=== PATIENT | female | born 1955 | race Caucasian/White ===

== ENCOUNTER 2020-10-04 21:15 | Emergency (ER) | payer MEDICARE ==
[2020-10-04] MEDS ORDERED: NIGHT-TIME COL300 ML (22:24)
[2020-10-04] MEDS ORDERED: EYE GTTS (22:35)
[2020-10-04] MEDS ORDERED: PROAIR HFA0.09 MG/AC IH (23:30)
[2020-10-04] MEDS ORDERED: PREDNISONE20 MG PO (23:30)
[2020-10-04] MEDS ORDERED: MONODOX100 M1 PO (23:32)
[2020-10-04 23:54] VITALS: BP 120/80
== END 2020-10-04 23:55 | disposition home or self-care (01) ==
LOC: ED 21:15
DX: J40 Bronchitis, not specified as acute or chronic (principal); Z20.822 Contact with and (suspected) exposure to COVID-19
CPT/HCPCS: J7512

== ENCOUNTER 2021-09-01 13:37 | Emergency (ER) | payer MEDICARE ==
[~2021-09-01 13:37] MED LIST: EYE GTTS; MONODOX100 M1 PO; NIGHT-TIME COL300 ML; PREDNISONE20 MG PO; PROAIR HFA0.09 MG/AC IH
[2021-09-01 13:48] VITALS: BP 151/121
[2021-09-01] MEDS ORDERED: PREMIERPRO RX5 MG/GM OP (14:32)
== END 2021-09-01 14:39 | disposition home or self-care (01) ==
LOC: ED 13:37
DX: H11.31 Conjunctival hemorrhage, right eye (principal); Z28.310 Unvaccinated for COVID-19; W26.8XXA Contact with other sharp object(s), not elsewhere classified, initial encounter; Y92.59 Other trade areas as the place of occurrence of the external cause; Y99.0 Civilian activity done for income or pay

== ENCOUNTER 2023-03-27 15:02 | Emergency (ER) | payer MEDICARE ==
[~2023-03-27] VITALS: Ht 15.2 cm; Wt 85.8 kg
[~2023-03-27 15:02] MED LIST changes: +DOXYCYCLINE MO100 M2 PO; +PREDNISONE20 M1 PO; +PREMIERPRO RX5 MG/GM OP; +PROVENTIL0.09 MG/A1 IH
[2023-03-27] MEDS ORDERED: LATANOPROST 2.2.5 ML OU (15:29)
[2023-03-27 15:51] LABS: BASO # 0.02 K/mm3 (0.02-0.10); EOS # 0.44 K/mm3 (0.04-0.40); EOS % 5.7 % (1.0-5.0); HEMATOCRIT 50.6 % (37.0-47.0); LYMPH# 0.91 K/mm3 (1.50-4.00); MEAN CELL VOLUME 99 fl (78-100); MEAN CORPUSCULAR HEMOGLOBIN 31 pg (27-31); MEAN CORPUSCULAR HGB CONC 32 g/dL (33-37); MEAN PLATELET VOLUME 10.7 fl (7.4-10.4); MONO # 0.74 K/mm3 (0.20-0.80); PLATELET COUNT 277 K/mm3 (130-400); WHITE BLOOD COUNT 7.7 K/mm3 (4.8-10.8)
[2023-03-27 15:56] LABS: ALBUMIN 4.6 g/dL (3.4-4.8); SODIUM 141 mmol/L (136-145)
[2023-03-27 15:58] LABS: CALCIUM 11.4 mg/dL (8.3-10.5)
[2023-03-27 15:59] LABS: GLUCOSE 98 mg/dL (65-105)
[2023-03-27 16:00] LABS: CARBON DIOXIDE 23 mmol/L (23-31)
[2023-03-27 16:01] LABS: TOTAL BILIRUBIN 0.6 mg/dL (0.2-1.2)
[2023-03-27 16:04] LABS: AST-SGOT 26 U/L (5-34)
[2023-03-27 16:05] LABS: ALT/SGPT 12 U/L (0-55)
[2023-03-27 16:34] LABS: TROPONIN-I < 0.030 ng/mL (<0.030)
[2023-03-27] MEDS ORDERED: ZITHROMAX Z PA250 MG PO (18:53)
[2023-03-27] MEDS ORDERED: PREDNISONE20 M1 PO (18:53)
[2023-03-27] MEDS ORDERED: IPRATROPIUM BROM3 M1 IH (18:53)
[2023-03-27 19:00] LABS: D-DIMER 0.36 mg/L FEU (0.15-0.50)
[2023-03-27] MEDS ORDERED: NEB (19:02)
[2023-03-27] MEDS ORDERED: REUSABLE NEBUL1 EACH MC (19:02)
[2023-03-27 19:20] VITALS: BP 119/88
== END 2023-03-27 19:20 | disposition home or self-care (01) ==
LOC: ED 15:02
PROVIDERS: Physician Assistant
DX: J20.9 Acute bronchitis, unspecified (principal); Z28.310 Unvaccinated for COVID-19
CPT/HCPCS: J2930; J7030